=== PATIENT | male | born 1980 | race Two or more races ===

== ENCOUNTER 2021-02-19 21:19 | Emergency (ER) | payer MEDICAID ==
[~2021-02-19] VITALS: Ht 170.2 cm; Wt 90.7 kg
--- NOTE | 2021-02-19 21:22 | NUR ---
Pt pt bibra c/o alcohol intoxication s/p drinking 16oz of vodka like drink. Pt unable to answer questions, but is responsive to painful stimuli. Pt attached to monitor and pox. Pt placed on 2L O2 via nc for comfort. pt saturating 98%. MD at bedside. Pt given blanket and call light within reach
[2021-02-19] MEDS ORDERED: IV NS 0.9% 1,000 ML BAG IV ONE (21:30)
[2021-02-19] MEDS ORDERED: IV NS 0.9% 500 ML BAG IV ONE (21:30)
[2021-02-19 22:24] LABS: BASOPHILS # (AUTO) 0.2 K/uL (0.0-0.2); BASOPHILS % (AUTO) 2.1 % (0.0-2.0); EOSINOPHILS % (AUTO) 2.9 % (0.0-6.0); HEMATOCRIT 49 % (39-51); HEMOGLOBIN 16.1 g/dL (13.5-17.5); LYMPHOCYTES # (AUTO) 3.1 K/uL (0.8-4.8); LYMPHOCYTES % (AUTO) 39.9 % (20.0-44.0); MEAN CORPUSCULAR HGB CONC 33 g/dl (31.0-36.0); MEAN CORPUSCULAR VOLUME 91 fL (80-96); MONOCYTES # (AUTO) 0.6 K/uL (0.1-1.30); MONOCYTES % (AUTO) 7.7 % (2.0-12.0); NEUTROPHILS # (AUTO) 3.7 K/uL (1.8-8.9); NEUTROPHILS % (AUTO) 47.4 % (43.0-81.0); PLATELET COUNT (AUTO) 207 K/uL (150-450); RED BLOOD CELL COUNT(AUTO) 5.36 MIL/uL (4.5-6.0); WHITE BLOOD COUNT (AUTO) 7.8 K/uL (4.3-11.0)
[2021-02-19 22:28] LABS: CALCIUM, SERUM 8.1 mg/dL (8.5-10.1); CARBON DIOXIDE 21 mmol/L (21-32); CHLORIDE 104 mmol/L (98-107); CREATININE 0.9 mg/dL (0.6-1.3); GLUCOSE 146 mg/dL (74-106); POTASSIUM 5.1 mmol/L (3.5-5.1); SODIUM SERUM 134 mmol/L (136-145); UREA NITROGEN, BLOOD 13 mg/dL (7-18)
--- NOTE | 2021-02-19 22:40 | NUR ---
taken to ct
[2021-02-19 22:43] LABS: ALCOHOL, BLOOD 108 mg/dL (0-0); ALKALINE PHOSPHATASE 49 U/L (46-116); ASPARTATE AMINOTRANSFERASE 6 U/L (15-37); BILIRUBIN,TOTAL 0.5 mg/dL (0.2-1.0); TOTAL PROTEIN, SERUM 7.6 g/dL (6.4-8.2)
[2021-02-19 22:58] LABS: ALANINE AMINOTRANSFERASE 59 U/L (12-78); ALBUMIN 2.2 g/dL (3.4-5.0)
[2021-02-19 22:59] LABS: ACETAMINOPHEN 0 ug/ml (10-30)
[2021-02-20] MEDS ORDERED: LIDOCAINE 2% JEL UROJET 10 ML MM ONE ×2 (00:31)
--- NOTE | 2021-02-20 00:46 | NUR ---
pt unable to urinate, aware
--- NOTE | 2021-02-20 02:43 | NUR ---
Pt awake, alert and oriented. Pt vital signs within normal limits. will Cont to monitor pt.
--- NOTE | 2021-02-20 05:08 | NUR ---
pt awake and ambulatory
--- NOTE | 2021-02-20 05:41 | NUR ---
called , eta for pickup is 1hr
--- NOTE | 2021-02-20 05:41 | NUR ---
Patient discharged to home in stable condition. Written and verbal after care instructions given. Patient verbalizes understanding of instruction. IV removed. Catheter intact and site benign. Pressure and 4x4 applied to site. No bleeding noted. Pt ambulatory with a steady gait
[2021-02-20 06:18] VITALS: BP 120/84
== END 2021-02-20 06:00 | disposition home or self-care (01) ==
LOC: EDBD 21:25 → ER 21:25
DX: F10.121 Alcohol abuse with intoxication delirium (principal); R11.10 Vomiting, unspecified; F29 Unspecified psychosis not due to a substance or known physiological condition; R94.31 Abnormal electrocardiogram [ECG] [EKG]; Y90.5 Blood alcohol level of 100-119 mg/100 ml
CPT/HCPCS: 36415; 70450; 71045; 72125; 80048; 80076; 80143; 80320; 84484; 85025; 93005; 96360; 99285; J3490; J7030; G0480

== ENCOUNTER 2024-11-05 22:55 | Emergency (ER) | payer BC ==
[~2024-11-05] VITALS: Ht 177.8 cm; Wt 95.3 kg
[2024-11-05] MEDS ORDERED: IBUP-1957 PO (23:34)
[2024-11-05 23:51] VITALS: BP 120/80; TEMP 98; O2SAT 98
== END 2024-11-05 23:52 | disposition home or self-care (01) ==
LOC: ER 23:10
DX: G89.29 Other chronic pain (principal); R10.9 Unspecified abdominal pain; M62.838 Other muscle spasm; Z79.1 Long term (current) use of non-steroidal anti-inflammatories (NSAID); Z86.69 Personal history of other diseases of the nervous system and sense organs